=== PATIENT | female | born 1940 | race Caucasian/White ===

== ENCOUNTER → 2017-02-17 | Outpatient (CLI) | payer OTHER | LOC: FIMAGING 14:32 | PROVIDERS: ATTEND Internal Medicine | DX: Z13.820 Encounter for screening for osteoporosis (principal); M81.8 Other osteoporosis without current pathological fracture ==

== ENCOUNTER → 2017-03-19 | Outpatient (CLI) | payer OTHER | LOC: FIMAGING 09:33 | PROVIDERS: ATTEND Internal Medicine | DX: Z12.31 Encounter for screening mammogram for malignant neoplasm of breast (principal); Z80.3 Family history of malignant neoplasm of breast | CPT/HCPCS: G0202 ==

== ENCOUNTER → 2018-03-20 | Outpatient (CLI) | payer OTHER | LOC: FIMAGING 11:47 | PROVIDERS: ATTEND Internal Medicine | DX: Z12.31 Encounter for screening mammogram for malignant neoplasm of breast (principal); Z85.3 Personal history of malignant neoplasm of breast ==

== ENCOUNTER 2018-05-20 11:58 | Emergency (ER) | payer OTHER ==
[2018-05-20 12:06] VITALS: BP 126/62
--- NOTE | 2018-05-20 12:08 | EDPHY ---
H & P Stated Complaint: Right Finger Injury Source: Patient Exam Limitations: No limitations - Personal History Current Tetanus Diphtheria and Acellular Pertussis (TDAP): Yes Tetanus Vaccine Date: 2011 - Medical/Surgical History Hx Asthma: No Hx Chronic Respiratory Disease: No Hx Diabetes: No Hx Cardiac Disease: Yes Hx Renal Disease: No Hx Cirrhosis: No Hx Alcoholism: No Hx HIV/AIDS: No Hx Splenectomy or Spleen Trauma: No Other PMH: CELLULITIS, breast cancer, bilateral lumpectomy, appy, L rotator cuff , C5-6 discectomy, RTKA, hypertension, hyperlipidemia, gerd, scloliosis, arthritis - Social History Smoking Status: Former smoker Time Seen by Provider: 05/20/18 12:07 HPI/ROS: HPI: This is a 78-year-old female who presents with Chief Complaint: Right ring finger injury Location: Right ring finger Quality: Injury Duration: Yesterday afternoon Signs and Symptoms: No bleeding, no radiation, no numbness, no weakness, no tingling, no incontinence, no decreased range of motion, + swelling, + pain, no fever Timing: Acute, worse with use Severity: 08/19 Context: Patient is right-hand dominant, presents with mechanical fall yesterday while she was stepping up onto the patio and missed the step. She fell forward and hit her right ring finger on the cement. She reports that she felt immediate, constant, nonradiating moderate pain. She woke up this morning and the pain has persisted with mild swelling at the proximal interphalangeal joint of her right ring finger. Denies LOC/head injury/neck pain/dizziness/ nausea/vomiting/amnesia/radiation/weakness/decreased range of motion. Modifying Factors: None Comment: ROS: A comprehensive 10 system review of systems is otherwise negative aside from elements mentioned in the history of present illness. MEDICAL/SURGICAL/SOCIAL HISTORY: Medical/surgical history: CELLULITIS, breast cancer, bilateral lumpectomy, appy , L rotator cuff, C5-6 discectomy, RTKA, hypertension, hyperlipidemia, gerd, scoliosis, arthritis Social history: Former smoker. Retired. CONSTITUTIONAL: Polite and cooperative, nontoxic-appearing elderly white female , awake and alert, no obvious distress HEENT: Atraumatic and normocephalic. NECK: supple EXTREMITIES: 2/2 pulses, strength 5/5, right ring finger PIP joint shows mild swelling, tenderness to palpation and redness. Right WRIST: Extension to 70, flexion to 80, radial deviation to 20 degree, ulnar deviation to 30, no scaphoid tenderness, no tenderness over ulnar styloid, no tenderness over radial styloid, DIP/PIP/MCP flexion/extension intact with good light touch sensation. no deformities, no clubbing, no cyanosis or edema. NEUROLOGICAL: no focal neuro deficits. GCS 15. Light touch sensation intact. SKIN: Warm and dry, no erythema. no rash. Good capillary refill. (Lina Springer) Constitutional: Initial Vital Signs Temperature (C) 36.7 C 05/20/18 12:04 Heart Rate 54 L 05/20/18 12:04 Respiratory Rate 16 05/20/18 12:04 Blood Pressure 126/62 H 05/20/18 12:04 O2 Sat (%) 94 05/20/18 12:04 O2 Delivery Mode Room Air Allergies/Adverse Reactions: amoxicillin Allergy (Verified 05/20/18 11:58) Home Medications: Medication Instructions Recorded FLUoxetine [Prozac 20 MG (*)] 20 mg PO DAILY 08/02/13 Aspirin [Aspirin 81mg (*)] 81 mg PO DAILY@1800 04/11/15 Atorvastatin Calcium [Lipitor 40 40 mg PO HS 04/11/15 mg (*)] Calcium Citrate W/Vit D [Citracal 630 mg PO BID@,04/11/15 + D] Cholecalciferol Vit D3 [Vitamin D3 1,000 units PO BID@08,04/11/15 (*)] Denosumab [Prolia] 60 mg SC .[id number] 04/11/15 Doxylamine Succinate [Unisom] 12.5 mg PO HS 04/11/15 Herbals/Supplements -Info Only 1 ea PO AD 04/11/15 Ibuprofen [Motrin (*)] 400 mg PO BID PRN 04/11/15 Losartan Potassium [Cozaar] 100 mg PO DAILY 04/11/15 Magnesium Oxide [Magnesium Oxide 250 mg PO HS 04/11/15 500 mg] Multivitamins [Multivitamin (*)] 1 each PO DAILY 04/11/15 Niacin [Niacin 500 mg (*)] 1,000 mg PO DAILY@1830 04/11/15 Temple-3 Fatty Acids [Fish Oil 1000 2,000 mg PO DAILY 04/11/15 mg (*)] Pantoprazole Sodium [Protonix 40mg 40 mg PO Q2D@0800 04/11/15 (*)] Phytonadione [Vitamin K] 100 mcg PO DAILY 04/11/15 Psyllium Husk (with Sugar) 2 tsp PO DAILY 04/11/15 [Metamucil Packet] Medical Decision Making - Diagnostics Imaging Results: Imaging Impressions Finger X-Ray 05/20/18 12:09 Impression: 1. Nondisplaced intra-articular avulsion fracture at the palmar base of the middle phalanx. 2. Additional findings as above. Findings discussed with Lina Springer 05/20/2018 at 13:03. Procedures: Procedure: Splint placement. The middle and ring fingers were pako-taped together by the Emergency Room sales and service technician. After application of the splint I returned and re-examined the patient. The splint was adequately immobilizing the joint and distal to the splint the patient's circulation and sensation was intact. (Lina Springer) ED Course/Re-evaluation: Right finger x-ray ordered and my read via PAC shows no acute fracture, dislocation. + degenerative changes Fall was mechanical in nature and no signs of syncope, acute coronary syndrome, seizure, sepsis Pako-taped. 1305: Called by radiologist, who questions small tiny avulsion fracture at the interphalangeal joint on ring finger. No signs of neurovascular compromise/tenting of skin/compartment syndrome/ extremities and joints examined above and below area of concern and are neurovascularly intact. This patient was seen under the supervision of my secondary supervising physician. I evaluated care for this patient independently. Discussed this patient with Dr. Serrato who did not see the patient. (Lina Springer) I did not see this patient while she was in the emergency department. However her care was discussed with the PA while the patient was in the department. I agree with treatment plan and management (Marcin Serrato) Differential Diagnosis: Differential diagnosis includes but is not limited to fracture, contusion, sprain, ligament injury. (Lina Springer) Departure - Departure Disposition: Home, Routine, Self-Care Clinical Impression: Sprain of right ring finger Qualifiers: Encounter type: initial encounter Sprain of finger site: interphalangeal joint Qualified Code(s): S63.634A - Sprain of interphalangeal joint of right ring finger, initial encounter Fracture of phalanx of right ring finger Qualifiers: Encounter type: initial encounter Fracture type: closed Phalanx: middle Fracture alignment: nondisplaced Qualified Code(s): S62.654A - Nondisplaced fracture of middle phalanx of right ring finger, initial encounter for closed fracture Condition: Good Instructions: Finger Sprain (ED) Additional Instructions: Pako-taped your fingers together until pain free. Take Tylenol 650 mg every 4 hours and/or Ibuprofen 600 mg every 8 hours with food as needed for pain. Apply ice for 30 minutes at a time; 2-3 times per day for the next 1-2 days. The x-rays obtained in the emergency department today demonstrate no evidence of an obvious fracture. Sometimes fractures are not obvious on the initial set of x-rays performed in the ED. For this reason, you should have repeat x-rays performed in 7-10 days if you are having any pain exclude the possibility of an occult fracture. Referrals: Mary Arechiga MD [Primary Care Provider] - 5-7 days, if not improved
== END 2018-05-20 13:07 | disposition home or self-care (01) ==
DX: S62.654A Nondisplaced fracture of middle phalanx of right ring finger, initial encounter for closed fracture (principal); S63.634A Sprain of interphalangeal joint of right ring finger, initial encounter; W19.XXXA Unspecified fall, initial encounter; Y92.9 Unspecified place or not applicable; Y93.9 Activity, unspecified; Y99.9 Unspecified external cause status